=== PATIENT | female | born 1965 | race Caucasian/White ===

== ENCOUNTER 2019-10-10 14:35 | Emergency (ER) | payer MEDICARE ==
[~2019-10-10] VITALS: Ht 154.9 cm; Wt 76.4 kg
[~2019-10-10 14:35] MED LIST: AMITRIPTYLINE H50 M1 PO; ASPIRIN 32325 MG/TAB PO; DESYREL 50MG50 MG PO; FOLIC ACID 11 MG/TA1 PO; IRON TABLETS325 MG PO; KLOR-CON M2020 MEQ PO; LAMICTAL200 MG PO; LORTAB 5/500 501 TAB PO; METHOTREXA50 MG/2 ML SQ; MSIR30 MG PO; NEURONTIN600 MG/TAB PO; NORFLEX 10100 MG/TAB PO; PERCOCET 325 MG1 TAB PO; PHENERGAN 25 TA25 MG PO; PLAQUENIL 200M200 MG PO; PLAVIX 75MG TAB75 MG PO; PREMARIN 1.251.25 MG PO; PRILOSEC 20MG20 MG PO; REMERON 15M15 MG/TA1 PO; SINEQUAN 2525 MG/CAP PO; ULTRAM 50MG TAB50 MG PO; VALIUM 2MG T2 MG/TAB PO; VITAMIN B1100 MCG/ML IM; VITAMIN B11000 MCG/M IM; WELLBUTRIN 100100 MG PO; ZOFRAN 4MG T4 MG/TAB PO; ZOFRAN ODT4 MG PO; ZOLOFT 100MG100 MG PO; ZYPREXA 5MG5 MG PO; [UNRECOGNIZED DRUG - OTHER] PO
[2019-10-10 14:39] VITALS: TEMP 98.9
[2019-10-10 15:22] LABS: BASO % 0.9 % (0.0-2.0); EOS # 0.3 (0.0-0.7); EOS % 7.9 % (0-4.0); GRAN # 2.7 (1.4-6.5); GRAN % 62.6 % (42.2-75.2); HEMATOCRIT 42.1 % (37.0-47.0); HEMOGLOBIN 13.3 g/dl (12.5-16.0); LYMPH # 0.9 (1.2-3.4); LYMPH % 20.7 % (20.0-51.0); MEAN CELL VOLUME 99 fl (80.0-100.0); MEAN CORPUSCULAR HEMOGLOBIN 31 pg (27.0-31.0); MEAN CORPUSCULAR HGB CONC 32 g/dl (33.0-37.0); MEAN PLATELET VOLUME 12.4 fl (7.4-10.4); MONO # 0.3 (0.1-0.6); MONO % 7.7 % (1.7-9.3); PLATELET COUNT 201 K/mm3 (130-400); RED BLOOD COUNT 4.26 M/mm3 (4.10-5.30); REDCELL DISTRIBUTION WIDTH-CV 13.4 % (11.5-14.5)
[2019-10-10 16:01] LABS: ALANINE AMINOTRANSFERASE 10 U/L (9-52); ALBUMIN 4.2 gm/dL (3.5-5.0); ALKALINE PHOSPHATASE 84 U/L (50-136); ANION GAP 10 mmol/L (7-16); AST,SGOT 27 U/L (15-37); BILIRUBIN,TOTAL 0.5 mg/dL (0.0-1.0); BLOOD UREA NITROGEN 13 mg/dL (7-17); CARBON DIOXIDE 25 mmol/L (22-30); CHLORIDE 104 mmol/L (98-107); CREATININE, serum 0.99 (0.52-1.25); GLUCOSE 83 mg/dL (74-106); POTASSIUM 4.2 mmol/L (3.4-5.0); SODIUM 139 mmol/L (137-145); TOTAL PROTEIN 6.8 gm/dL (6.4-8.2)
[2019-10-10 16:04] LABS: C-REACTIVE PROTEIN < 0.5 mg/dL (0.0-0.9)
[2019-10-10 16:10] LABS: TROPONIN-I < 0.012 ng/mL (0.000-0.035)
[2019-10-10 16:15] VITALS: BP 103/59; PULSE 63
== END 2019-10-10 16:25 | disposition home or self-care (01) ==
LOC: COL.ER 14:35
PROVIDERS: Emergency Medicine
DX: S06.0X0A Concussion without loss of consciousness, initial encounter (principal); H11.31 Conjunctival hemorrhage, right eye; M79.7 Fibromyalgia; Q87.19 Other congenital malformation syndromes predominantly associated with short stature; R40.2410 Glasgow coma scale score 13-15, unspecified time; Z87.891 Personal history of nicotine dependence; W19.XXXA Unspecified fall, initial encounter; Y92.009 Unspecified place in unspecified non-institutional (private) residence as the place of occurrence of the external cause
CPT/HCPCS: J7030

== ENCOUNTER 2021-06-29 15:44 | Inpatient (IN) | payer MEDICARE ==
[~2021-06-29] VITALS: Ht 154.9 cm; Wt 160.1 kg
[2021-06-29 18:39] LABS: BASO # 0.1 K/mm3 (0.0-0.2); BASO % 0.7 % (0.0-2.0); GRAN # 7.2 K/mm3 (1.4-6.5); GRAN % 80.4 % (42.2-75.2); HEMATOCRIT 37.6 % (37.0-47.0); HEMOGLOBIN 12.3 g/dl (12.5-16.0); LYMPH % 11.1 % (20.0-51.0); MEAN CELL VOLUME 94 fl (80.0-100.0); MEAN CORPUSCULAR HEMOGLOBIN 31 pg (27.0-31.0); MEAN CORPUSCULAR HGB CONC 33 g/dl (33.0-37.0); MEAN PLATELET VOLUME 12.1 fl (7.4-10.4); MONO # 0.6 K/mm3 (0.1-0.6); MONO % 7.2 % (1.7-9.3); PLATELET COUNT 214 K/mm3 (130-400); RED BLOOD COUNT 3.99 M/mm3 (4.10-5.30); REDCELL DISTRIBUTION WIDTH-CV 13.8 % (11.5-14.5)
[2021-06-29 18:58] LABS: ALBUMIN 2.7 gm/dL (3.5-5.0); BILIRUBIN,TOTAL 0.4 mg/dL (0.2-1.2); C-REACTIVE PROTEIN 0.56 mg/dL (0.00-0.50); CALCIUM 8.5 mg/dL (8.4-10.2); CREATININE, serum 0.92 mg/dL (0.57-1.11); POTASSIUM 3.3 mmol/L (3.5-4.5); TOTAL PROTEIN 5.1 gm/dL (6.2-8.1)
[2021-06-29] MEDS ORDERED: FOLTABS PO (22:25)
[2021-06-29] MEDS ORDERED: FLEXERIL 1010 MG/TAB PO (22:27)
[2021-06-29] MEDS ORDERED: ZOFRAN 4MG T4 MG/TAB PO (22:27)
[2021-06-29] MEDS ORDERED: VITAMIND3 5000 PO (22:27)
[2021-06-29] MEDS ORDERED: REMERON 15M15 MG/TA1 PO (22:28)
[2021-06-29] MEDS ORDERED: MELATONIN5 M1 SL (22:28)
[2021-06-29] MEDS ORDERED: NORCO 325 MG-51 TAB PO (22:28)
[2021-06-29] MEDS ORDERED: MOBIC 7.5MG7.5 MG PO (22:29)
[2021-06-29] MEDS ORDERED: TRIAMCINOLONE A15 G3 TP (22:29)
[2021-06-30] VITALS (14 sets, daily range): BP systolic 92–102; BP diastolic 44–63; PULSE 78–85; TEMP 98–99.3
--- NOTE | 2021-06-30 01:27 | NUR ---
Patient came to the unit, alert and oriented x 4, VSS, complains of general pain, no nausea or vomiting. Not able to swallow pills. Able to drink sips of water. Patient reports feeling weak and havent had food for 5 days. BM 2 hrs ago. NS running at 250 ml/hr.
--- NOTE | 2021-06-30 06:33 | NUR ---
Pt has not been able to rest. She is getting fluids at 150 ml/hr. She removed her IV and a new one started. IV potassium was started but unable to tolerate. Potassium efferv. was tried but patient refused. Right now she is leeping. Shift report will be given to day shift RN.
[2021-06-30 07:15] LABS: CREATININE, serum 0.83 mg/dL (0.57-1.11); POTASSIUM 3.1 mmol/L (3.5-4.5)
[2021-06-30 08:24] LABS: MAGNESIUM 1.5 mg/dL (1.6-2.6); PHOSPHOROUS 2.9 mg/dL (2.3-4.7)
--- NOTE | 2021-06-30 09:43 | NUR ---
structural ironworker met with patient to discuss discharge plan. Patient lives at home alone in [facility]. Patient reports that she is independent and has no difficulties with ADL's. Patient reports that she does not utilize any DME such as a cane or a walker to assist with mobility. Does not have any oxygen needs. PCP is Dr. Larose and she utilizes [facility] for a pharmacy with no no difficulty. Patient reports that she "thinks" she has a DPOA-HC established and that it would be her daughter Kathleen ([phone]). structural ironworker present when speech therapist collaborated with the doctor. Patient reports to the therapist that she hasn't been eatting mainly because she is "to weak" to get up and make the food. PT/OT have been ordered and will await their recommendations for discharge plan. Discharge plan: Patient would like to return home, but is at high risk for supportative needs. Will await PT/OT rec's.
--- NOTE | 2021-06-30 12:29 | NUR ---
Patient refused IV Potassium Chloride stating that it was painful. Patient was advised of her potassium lab result and still refused. Patient has new order for magnesium. Patient was offered magnesium via IV site in hand. The patient advised that she had a consult and would be having a PICC line for future IV medications. She has been taken to get her procedure. Will administer IV medications as ordered via PICC line.
--- NOTE | 2021-06-30 14:32 | NUR ---
Primary nurse was assisted with [phone] patient care by [employer] student Janie Cyr and [employer] instructor Eva Guevara MSN, RN
--- NOTE | 2021-06-30 16:06 | NUR ---
Patient refused IV potassium this morning d/t burning with administration. Patient stated, "If you give me that medication I will jump up out of this bed and leave". This RN asked the patient if she would be willing to have a PICC placed after her EGD and she agreed. Jerrica, attempted placement 3 times and was unsuccessful. Patient is currently having a central line placed by Dr. Lee.
--- NOTE | 2021-06-30 18:54 | NUR ---
Patient has had an eventful day. EGD was comleted. PICC placement was attempted and failed. Patient was then taken for a central line placement by Dr. Lee. Patient now has a centra line in her RIJ. Patient has been tolerating IV medication administration well with the central line. Patient's only complaint is having to be poked so many times and would like to be left alone to sleep tonight. Patient's INT was removed from the left hand.
--- NOTE | 2021-06-30 23:42 | NUR ---
ALERT AND OX4 PT HAD A EVENTFUL DAY. RT IJ PLACED, FLUSHED. FLUIDS RUNNING, MAG AND POTASSIUM PER ORDER. PT TOLERATED SOME CLEAR LIQUIDS. SCARED TO CONSUME TO MUCH WANTS TO HOLD ON PM MEDS OTHER THAN IVS. POC DISCUSSED. CALL LIGHT WI REACH . NEEDS MET.
[2021-07-01 02:56] VITALS: BP 90/42; PULSE 79; TEMP 98
--- NOTE | 2021-07-01 04:17 | NUR ---
PT REPORT PAIN, HEAD AND RIGHT SIDE OF NECK. PT IS HESITANT TO TAKE PILLS STILL UNDERSTANDABLY. CALLED [facility] TO SEE IF WE CAN CHANGE IT TO LIQUID PAIN MED. WILL CHANGE.
[2021-07-01 04:34] VITALS: BP 97/56
--- NOTE | 2021-07-01 05:30 | NUR ---
PT RESTING NOW AFTER LIQ NORCO. FLUIDS RUNNING AT 150ML/HR. CONT TO TOLERATE SOME FLUIDS WITHOUT NAUSEA OR DIFFICULTY. STATES HER NECK WHERE THEY PLACED THE INTERNAL JUGULAR IS WAKING UP AND CONTRIBUTES SOME PAIN FROM THIS PLUS BODY ACHES. NEEDS ARE MET.
[2021-07-01 08:08] VITALS: BP 90/46; PULSE 76; TEMP 98.3
[2021-07-01 09:19] LABS: BASO % 0.5 % (0.0-2.0); GRAN # 4.2 K/mm3 (1.4-6.5); GRAN % 75.4 % (42.2-75.2); LYMPH # 0.9 K/mm3 (1.2-3.4); LYMPH % 16.9 % (20.0-51.0); MEAN CELL VOLUME 93 fl (80.0-100.0); MEAN CORPUSCULAR HGB CONC 33 g/dl (33.0-37.0); MEAN PLATELET VOLUME 12.4 fl (7.4-10.4); MONO # 0.4 K/mm3 (0.1-0.6); MONO % 6.5 % (1.7-9.3); PLATELET COUNT 166 K/mm3 (130-400); RED BLOOD COUNT 3.07 M/mm3 (4.10-5.30); REDCELL DISTRIBUTION WIDTH-CV 14.3 % (11.5-14.5)
[2021-07-01 09:28] LABS: HEMOGLOBIN 9.3 g/dl (12.5-16.0); MEAN CORPUSCULAR HEMOGLOBIN 30 pg (27.0-31.0)
[2021-07-01 09:29] LABS: HEMATOCRIT 28.6 % (37.0-47.0)
[2021-07-01 10:22] LABS: CALCIUM 7.3 mg/dL (8.4-10.2); CREATININE, serum 0.65 mg/dL (0.57-1.11); POTASSIUM 3.7 mmol/L (3.5-4.5)
[2021-07-01 12:45] VITALS: BP 88/45; PULSE 73; TEMP 98.3
--- NOTE | 2021-07-01 13:09 | NUR ---
Patient took approx. 10mL of the liquid centrum before gagging and nearly vomiting. Patient is refusing to take the med again.
[2021-07-01 16:20] VITALS: BP 99/50; PULSE 82; TEMP 97.9
[2021-07-01 20:10] VITALS: BP 87/45; PULSE 81; TEMP 99.1
--- NOTE | 2021-07-01 22:54 | NUR ---
ALERT AND OX4. DENIES SOA, CHEST PAIN OR DIZZY. TRYED MASH POTATO TONIGHT AND TOLERATED WELL. DENIES PAIN. PM MEDS GIVEN. REF PILLS. IV FLUIDS GOING PER ORDER. POC DISCUSSED. NEEDS MET.
[2021-07-02] VITALS (7 sets, daily range): BP systolic 97–115; BP diastolic 47–69; PULSE 77–82; TEMP 98–99
--- NOTE | 2021-07-02 05:41 | NUR ---
RESTED THROUGH THE NIGHT WIHTOUT INCIDENT. AM LABS DRAWN. NEEDS MET.
[2021-07-02 06:37] LABS: BASO % 0.4 % (0.0-2.0); GRAN % 67.6 % (42.2-75.2); LYMPH % 22.8 % (20.0-51.0); MEAN CELL VOLUME 95 fl (80.0-100.0); MEAN CORPUSCULAR HGB CONC 32 g/dl (33.0-37.0); MEAN PLATELET VOLUME 12.3 fl (7.4-10.4); MONO # 0.4 K/mm3 (0.1-0.6); MONO % 8.3 % (1.7-9.3); PLATELET COUNT 151 K/mm3 (130-400); RED BLOOD COUNT 3.07 M/mm3 (4.10-5.30); REDCELL DISTRIBUTION WIDTH-CV 14.4 % (11.5-14.5)
[2021-07-02 06:42] LABS: HEMATOCRIT 29.2 % (37.0-47.0); HEMOGLOBIN 9.3 g/dl (12.5-16.0); MEAN CORPUSCULAR HEMOGLOBIN 30 pg (27.0-31.0)
[2021-07-02 06:56] LABS: CALCIUM 7.8 mg/dL (8.4-10.2); CREATININE, serum 0.6 mg/dL (0.57-1.11); MAGNESIUM 1.7 mg/dL (1.6-2.6); POTASSIUM 3.5 mmol/L (3.5-4.5)
--- NOTE | 2021-07-02 20:00 | NUR ---
Bedside shift report received, assumed care for operations supervisor 2nd shift. Assessment complete. A&Ox4. Denies nausea/shortness of breath. VS stable. States she is having general body aches but states she doesnt want any pain medication at this time. Encouraged to call if pain level increases and intervention is needed. Central line to right IJ with NS@60ml/hr-infusing without difficulty. Plan of care discussed for this shift to include meds/calling for questions/concerns. Verbalizes understanding/denies needs. Did refuse all PO medications at HS except IV/Liquid form. Call light in reach. Will monitor.
--- NOTE | 2021-07-03 00:30 | NUR ---
Called with c/o pain-states "my whole body just hurts." Rating pain 8/10 on pain scale. Moni given per dr lynne. Will monitor.
[2021-07-03 04:11] VITALS: BP 98/46; PULSE 80; TEMP 98.4
[2021-07-03 06:45] LABS: CALCIUM 7.6 mg/dL (8.4-10.2); CREATININE, serum 0.63 mg/dL (0.57-1.11); MAGNESIUM 1.5 mg/dL (1.6-2.6); POTASSIUM 3.5 mmol/L (3.5-4.5)
--- NOTE | 2021-07-03 08:06 | NUR ---
Pt sleeping upon entry to room, no C/O pain at this time. Shift assessment complete, left Pt call light in reach, bed in lowest position.
[2021-07-03 09:06] VITALS: BP 105/47; PULSE 75; TEMP 98
--- NOTE | 2021-07-03 10:19 | NUR ---
PT/OT are recommending home. SW met with the patient to follow up and review the benefits of home health. The patient reports that she is doing well. She reports that she feels good going back home and is not interested in home health at this time. She states that she is interested in housekeeping though. JANET provided the patient a list of agencies in the [facility] that provide house cleaning. The patient had no other concerns for SW at this time. *Discharge plan: home*
[2021-07-03 11:42] VITALS: BP 106/54; PULSE 78; TEMP 98
[2021-07-03 12:02] LABS: BASO % 0.9 % (0.0-2.0); GRAN # 3.2 K/mm3 (1.4-6.5); GRAN % 72.3 % (42.2-75.2); LYMPH # 0.8 K/mm3 (1.2-3.4); LYMPH % 18.8 % (20.0-51.0); MEAN CELL VOLUME 93 fl (80.0-100.0); MEAN CORPUSCULAR HGB CONC 33 g/dl (33.0-37.0); MEAN PLATELET VOLUME 11.7 fl (7.4-10.4); MONO # 0.3 K/mm3 (0.1-0.6); MONO % 7.1 % (1.7-9.3); PLATELET COUNT 158 K/mm3 (130-400); RED BLOOD COUNT 3.15 M/mm3 (4.10-5.30); REDCELL DISTRIBUTION WIDTH-CV 14.3 % (11.5-14.5)
[2021-07-03 12:05] LABS: HEMATOCRIT 29.4 % (37.0-47.0); HEMOGLOBIN 9.7 g/dl (12.5-16.0); MEAN CORPUSCULAR HEMOGLOBIN 31 pg (27.0-31.0)
[2021-07-03 16:07] VITALS: BP 94/49; PULSE 88; TEMP 98.2
[2021-07-03 19:38] VITALS: BP 117/65; PULSE 94; TEMP 97.8
--- NOTE | 2021-07-03 22:27 | NUR ---
ALERT AND OX4. DENIES SOA, CHEST PAIN OR DIZZY. PM MEDS GIVEN ONLY WANTS IV STUFF. WAS ABLE TO CONSUME MASHPOTATO TONIGHT. POC DISCUSSED. CALL LIGHT WI REACH. RT IJ FLUSHED. FLUIDS RUNNINGS. NEEDS MET.
[2021-07-04 00:26] VITALS: BP 99/54; PULSE 82; TEMP 98.2
[2021-07-04 03:54] VITALS: BP 105/57; PULSE 78; TEMP 98.3
--- NOTE | 2021-07-04 05:22 | NUR ---
Rested through the night without incident. Need are met. AM labs drawn.
[2021-07-04 06:45] LABS: BASO % 0.8 % (0.0-2.0); GRAN # 2.4 K/mm3 (1.4-6.5); LYMPH # 0.9 K/mm3 (1.2-3.4); LYMPH % 22.7 % (20.0-51.0); MEAN CELL VOLUME 91 fl (80.0-100.0); MEAN CORPUSCULAR HGB CONC 34 g/dl (33.0-37.0); MEAN PLATELET VOLUME 12.2 fl (7.4-10.4); MONO # 0.4 K/mm3 (0.1-0.6); MONO % 10.2 % (1.7-9.3); PLATELET COUNT 165 K/mm3 (130-400); RED BLOOD COUNT 3.07 M/mm3 (4.10-5.30); REDCELL DISTRIBUTION WIDTH-CV 14.1 % (11.5-14.5)
[2021-07-04 06:46] LABS: HEMOGLOBIN 9.5 g/dl (12.5-16.0); MEAN CORPUSCULAR HEMOGLOBIN 31 pg (27.0-31.0)
[2021-07-04 07:17] LABS: CALCIUM 7.4 mg/dL (8.4-10.2); CREATININE, serum 0.6 mg/dL (0.57-1.11); MAGNESIUM 1.5 mg/dL (1.6-2.6); POTASSIUM 3.4 mmol/L (3.5-4.5)
[2021-07-04 07:49] VITALS: BP 114/58; PULSE 79; TEMP 98.5
--- NOTE | 2021-07-04 11:30 | NUR ---
PT RESTING IN BED. REFUSES ALL ORAL MEDICATIONS. POTASSIUM REPLCEMENT VIA CENTRAL LINE RUNNING AT THIS TIME. DENIES ANY PAIN OR NEEDS AT THIS TIME. WILL CONTINUE TO MONITOR.
[2021-07-04 11:43] VITALS: BP 90/74; PULSE 80; TEMP 98
--- NOTE | 2021-07-04 12:25 | NUR ---
PT BLOOD SUGAR AT 63 AT THIS TIME. PT HAS ORDERED LUNCH AND IS AGREEABLE TO EATING APPLESAUCE AND DRINKING ORANGE JUICE. WILL CONTINUE TO MONITOR.
--- NOTE | 2021-07-04 15:04 | NUR ---
PT DOWN FOR A PROCEDURE AT THIS TIME.
[2021-07-04 17:57] LABS: ZINC,S 0.48 mcg/mL (())
[2021-07-04 19:12] VITALS: BP 94/49; PULSE 83; TEMP 98.2
--- NOTE | 2021-07-04 22:40 | NUR ---
Patient assessed around 1950. Did not want to eat supper, and did not want to take any oral medications. Is drinking fluids. Aware that she will be NPO after midnight for her EGD tomorrow around noon. Voices no questions, needs, or concerns at this time. In bed with call light within reach.
[2021-07-04 23:45] VITALS: BP 104/58; PULSE 90; TEMP 98
[2021-07-05] VITALS (12 sets, daily range): BP systolic 84–152; BP diastolic 43–96; PULSE 67–87; TEMP 97.4–98.3
--- NOTE | 2021-07-05 00:26 | NUR ---
Patient given PRN Gary as requested for pain at this time.
--- NOTE | 2021-07-05 06:05 | NUR ---
Patient given PRN [place] once this shift for pain as requested. Voices no further questions, needs, or concerns at this time. Patient has been NPO since midnight for EGD with dilation today. In bed with call light within reach. IV fluids continue per orders.
[2021-07-05 07:01] LABS: ANION GAP 9 mmol/L (7-16); BLOOD UREA NITROGEN < 2 mg/dL (10-20); CALCIUM 7.7 mg/dL (8.4-10.2); CARBON DIOXIDE 23 mmol/L (22-29); CHLORIDE 106 mmol/L (98-107); GLUCOSE 73 mg/dL (70-99); MAGNESIUM 1.7 mg/dL (1.6-2.6); POTASSIUM 3.8 mmol/L (3.5-4.5); SODIUM 138 mmol/L (136-145)
--- NOTE | 2021-07-05 07:28 | NUR ---
RECEIVED REPORT FROM ANDRE PULIDO. PT ASLEEP IN BED. BREATHING REG/UNLABORED. CALL BRIAN IN REACH
[2021-07-05 08:49] LABS: BASO % 0.5 % (0.0-2.0); GRAN # 2.5 K/mm3 (1.4-6.5); GRAN % 66.8 % (42.2-75.2); LYMPH # 0.8 K/mm3 (1.2-3.4); LYMPH % 21.2 % (20.0-51.0); MEAN CELL VOLUME 93 fl (80.0-100.0); MEAN CORPUSCULAR HGB CONC 33 g/dl (33.0-37.0); MEAN PLATELET VOLUME 12.3 fl (7.4-10.4); MONO # 0.4 K/mm3 (0.1-0.6); MONO % 10.1 % (1.7-9.3); PLATELET COUNT 168 K/mm3 (130-400); RED BLOOD COUNT 3.12 M/mm3 (4.10-5.30); REDCELL DISTRIBUTION WIDTH-CV 14.6 % (11.5-14.5)
[2021-07-05 08:51] LABS: HEMATOCRIT 29.1 % (37.0-47.0); HEMOGLOBIN 9.6 g/dl (12.5-16.0); MEAN CORPUSCULAR HEMOGLOBIN 31 pg (27.0-31.0)
--- NOTE | 2021-07-05 12:54 | NUR ---
PT BACK FROM UPPER GI. VITALS STABLE. PT DOING WELL. RESTING IN BED
[2021-07-05] MEDS ORDERED: PROTONIX 40MG T40 MG PO (13:58)
[2021-07-05] MEDS ORDERED: Zinc Sulfate PO (14:00)
[2021-07-05] MEDS ORDERED: B-121000 MCG PO (14:00)
[2021-07-05] MEDS ORDERED: MAG-OX 400400 MG/TAB PO (15:12)
[2021-07-05] MEDS ORDERED: ZINC SULFATE 1566 MG PO (15:14)
--- NOTE | 2021-07-05 18:48 | NUR ---
PT HAD UPPER GI TODAY WITH ESOPHAGEAL DILATION. PLAN WAS FOR PT TO DISCHARGE, BUT PT PRESENTED WITH LOW BP PRIOR TO D/C. HOSPITALIST DECIDED TO KEEP PT OVERNIGHT AND THE NEW PLAN IS TO D/C IN THE MORNING. PT RESTING IN BED. NO NEEDS AT THIS TIME. DENIES PAIN
--- NOTE | 2021-07-05 19:40 | NUR ---
Report received, assumed care for shift production associate. Assessment complete. A&Ox4. Denies nausea/shortness of breath. Rating pain 6/10 on pain scale to bilat lower extremity-described as constant ache. States she wants to wait to take pain meds until later. Upset about discharge confusion. States three different people stated she would be going home tonight. No discharge order in computer at this time. This nurse received in report that discharge was cancelled due to hypotension. Patient states its to late to go home now as there is no one to come and get her. States her daughter will be here at 10am to get her. Discharge paperwork is completed but there has been no DC order placed. States she is okay staying so her family doesnt have to come out this late. Denies any other questions/concerns. Call light in reach. Will monitor.
--- NOTE | 2021-07-05 20:15 | NUR ---
IV fluids DCd at this time per dr order.
--- NOTE | 2021-07-05 22:15 | NUR ---
Called with c/o pain to bilat legs-rating pain 8/10 on pain scale-described as constant throbbing and ache. Hydrocodone given per dr order. Will monitor.
[2021-07-06 00:47] VITALS: BP 91/57; PULSE 81; TEMP 98.5
[2021-07-06 04:31] VITALS: BP 103/60; PULSE 81; TEMP 98.3
--- NOTE | 2021-07-06 04:40 | NUR ---
Rested well this shift. Received norco x1 for bilat lower ext pain with good results. States she just wants to go home this morning and that her daughter will be here at 1000 to pick her up. VS remain stable. Blood sugars remained above 75. AM labs drawn off of right IJ triple lumen without difficulty. Denies current needs. Call light in reach. Will monitor.
[2021-07-06 06:56] LABS: BASO % 0.8 % (0.0-2.0); GRAN # 2.3 K/mm3 (1.4-6.5); GRAN % 62.3 % (42.2-75.2); LYMPH # 0.9 K/mm3 (1.2-3.4); LYMPH % 25.3 % (20.0-51.0); MEAN CELL VOLUME 94 fl (80.0-100.0); MEAN CORPUSCULAR HGB CONC 32 g/dl (33.0-37.0); MEAN PLATELET VOLUME 12.1 fl (7.4-10.4); MONO # 0.4 K/mm3 (0.1-0.6); MONO % 10.5 % (1.7-9.3); PLATELET COUNT 181 K/mm3 (130-400); RED BLOOD COUNT 3.17 M/mm3 (4.10-5.30); REDCELL DISTRIBUTION WIDTH-CV 14.6 % (11.5-14.5)
[2021-07-06 06:59] LABS: HEMATOCRIT 29.7 % (37.0-47.0); HEMOGLOBIN 9.6 g/dl (12.5-16.0); MEAN CORPUSCULAR HEMOGLOBIN 30 pg (27.0-31.0)
--- NOTE | 2021-07-06 07:02 | NUR ---
REPORT RECEIVED FROM ANDRE LARSON. PT ASLEEP IN BED. BREATHING REG/UNLABORED. CALL BRIAN IN REACH
[2021-07-06 07:12] LABS: ANION GAP 9 mmol/L (7-16); CALCIUM 8.1 mg/dL (8.4-10.2); CARBON DIOXIDE 23 mmol/L (22-29); CHLORIDE 107 mmol/L (98-107); CREATININE, serum 0.62 mg/dL (0.57-1.11); GLUCOSE 67 mg/dL (70-99); POTASSIUM 3.2 mmol/L (3.5-4.5); SODIUM 139 mmol/L (136-145)
[2021-07-06 07:13] LABS: BLOOD UREA NITROGEN < 2 mg/dL (10-20)
[2021-07-06 07:56] VITALS: BP 102/48; PULSE 78; TEMP 98.5
[2021-07-06 08:20] LABS: VITAMIN B1 49 nmol/L (70-180)
--- NOTE | 2021-07-06 09:49 | NUR ---
The patient is to discharge back home today, 07/06. SW met with the patient and presented and read the IM form outloud to her. The patient verbalized understanding and signed the form. SW provided her with a copy. The patient states that her daughter will be transporting her home. No additional needs at this time.
--- NOTE | 2021-07-06 10:47 | NUR ---
DISCHARGE INSTRUCTIONS REVIEWED WITH PT. QUESTIONS INVITED AND ANSWERED. TELE AND CENTRAL LINE REMOVED. PT ESCORTED OUT TO CAR BY [employer] EM[employer]
== END 2021-07-06 11:15 | disposition home or self-care (01) | DRG 391 ==
LOC: COL.ER 15:44 → MEDICAL 22:23
PROVIDERS: Internal Medicine; Internal Medicine Gastroenterology; Nurse Practitioner; Nurse Practitioner Family; Physician Assistant; Surgery; ADMIT Internal Medicine
PROC: 0DB38ZX Excision of Lower Esophagus, Via Natural or Artificial Opening Endoscopic, Diagnostic (ICD-10-PCS; 2021-06-30)
PROC: 05HM33Z Insertion of Infusion Device into Right Internal Jugular Vein, Percutaneous Approach (ICD-10-PCS; principal; 2021-06-30 12:00)
DX: K22.2 Esophageal obstruction (principal); E43 Unspecified severe protein-calorie malnutrition; E87.1 Hypo-osmolality and hyponatremia; M35.00 Sjogren syndrome, unspecified; M06.9 Rheumatoid arthritis, unspecified; M79.7 Fibromyalgia; M32.9 Systemic lupus erythematosus, unspecified; I45.10 Unspecified right bundle-branch block; E86.0 Dehydration; K52.9 Noninfective gastroenteritis and colitis, unspecified; E86.9 Volume depletion, unspecified; E87.6 Hypokalemia; D64.9 Anemia, unspecified; Z66 Do not resuscitate; R13.10 Dysphagia, unspecified; K29.70 Gastritis, unspecified, without bleeding; E83.42 Hypomagnesemia; E16.2 Hypoglycemia, unspecified; E53.8 Deficiency of other specified B group vitamins; Z68.28 Body mass index [BMI] 28.0-28.9, adult; Z87.891 Personal history of nicotine dependence
CPT/HCPCS: 99223-AI; 99232-AI; 99233-AI; 99239; A9585; C1726; C1751; C1892; C9113; J0696; J1650; J2060; J2704; J3010; J3420; J3475; J3480; J7030; J7040; Q9967

== ENCOUNTER 2021-08-04 14:29 | Inpatient (IN) | payer MEDICARE ==
[~2021-08-04] VITALS: Ht 154.9 cm; Wt 65.9 kg
[~2021-08-04 14:29] MED LIST changes: +B-121000 MCG PO; +FLEXERIL 1010 MG/TAB PO; +FOLTABS PO; +MAG-OX 400400 MG/TAB PO; +MELATONIN5 M1 SL; +MOBIC 7.5MG7.5 MG PO; +NORCO 325 MG-51 TAB PO; +PROTONIX 40MG T40 MG PO; +TRIAMCINOLONE A15 G3 TP; +VITAMIND3 5000 PO; +ZINC SULFATE 1566 MG PO; +Zinc Sulfate PO
[2021-08-04 18:00] LABS: BASO % 0.5 % (0.0-2.0); EOS # 0.1 K/mm3 (0.0-0.7); EOS % 0.8 % (0-4.0); GRAN # 4.6 K/mm3 (1.4-6.5); GRAN % 75.3 % (42.2-75.2); HEMATOCRIT 38.6 % (37.0-47.0); HEMOGLOBIN 12.8 g/dl (12.5-16.0); LYMPH % 16.5 % (20.0-51.0); MEAN CELL VOLUME 91 fl (80.0-100.0); MEAN CORPUSCULAR HEMOGLOBIN 30 pg (27.0-31.0); MEAN CORPUSCULAR HGB CONC 33 g/dl (33.0-37.0); MEAN PLATELET VOLUME 12.7 fl (7.4-10.4); MONO # 0.4 K/mm3 (0.1-0.6); MONO % 6.4 % (1.7-9.3); PLATELET COUNT 208 K/mm3 (130-400); RED BLOOD COUNT 4.23 M/mm3 (4.10-5.30); REDCELL DISTRIBUTION WIDTH-CV 13.9 % (11.5-14.5)
[2021-08-04 18:11] LABS: ALBUMIN 3.5 gm/dL (3.5-5.0); BILIRUBIN,TOTAL 0.6 mg/dL (0.2-1.2); CALCIUM 9.7 mg/dL (8.4-10.2); CREATININE, serum 0.76 mg/dL (0.57-1.11); TOTAL PROTEIN 6.7 gm/dL (6.2-8.1)
[2021-08-04 18:13] LABS: POTASSIUM 2.8 mmol/L (3.5-4.5)
--- NOTE | 2021-08-04 22:46 | NUR ---
Arrived to room 319 via wheelchair from ED. Oriented to room and policy.
[2021-08-04 22:50] VITALS: BP 123/58; PULSE 86; TEMP 99
--- NOTE | 2021-08-05 00:30 | NUR ---
Resting eyes closed. No s/s of pain or discomfort noted.
--- NOTE | 2021-08-05 00:30 | NUR ---
C/O pain to entire body-described as constant ache-rating pain 8/10 on pain scale. Morphine given per dr order. ALso c/o nausea. Phenergan given per dr order. Will monitor.
[2021-08-05 05:10] VITALS: BP 112/58; PULSE 80; TEMP 98
[2021-08-05 06:25] LABS: BASO % 0.5 % (0.0-2.0); EOS # 0.1 K/mm3 (0.0-0.7); EOS % 2.5 % (0-4.0); GRAN # 3.6 K/mm3 (1.4-6.5); GRAN % 64.5 % (42.2-75.2); HEMOGLOBIN 11.1 g/dl (12.5-16.0); LYMPH # 1.4 K/mm3 (1.2-3.4); LYMPH % 24.6 % (20.0-51.0); MEAN CELL VOLUME 94 fl (80.0-100.0); MEAN CORPUSCULAR HEMOGLOBIN 31 pg (27.0-31.0); MEAN CORPUSCULAR HGB CONC 33 g/dl (33.0-37.0); MEAN PLATELET VOLUME 13.7 fl (7.4-10.4); MONO # 0.4 K/mm3 (0.1-0.6); MONO % 7.2 % (1.7-9.3); RED BLOOD COUNT 3.61 M/mm3 (4.10-5.30); REDCELL DISTRIBUTION WIDTH-CV 14.1 % (11.5-14.5)
--- NOTE | 2021-08-05 06:27 | NUR ---
Rested well after receiving one dose of morphine/phenergan. VS remained stable. Denies current needs. Call light in reach. Will monitor.
[2021-08-05 06:38] LABS: CALCIUM 7.9 mg/dL (8.4-10.2); CREATININE, serum 0.66 mg/dL (0.57-1.11); POTASSIUM 3.9 mmol/L (3.5-4.5)
[2021-08-05 06:48] LABS: PLATELET COUNT 93 K/mm3 (130-400)
[2021-08-05 08:33] VITALS: BP 100/53; PULSE 80; TEMP 97.6
--- NOTE | 2021-08-05 11:05 | NUR ---
PT SITTING UP IN BED, DENIES PAIN AT THIS TIME. VSS, PT IS A/O X3. DR RIDDLE PLANNING ON Saturday.
[2021-08-05 12:45] VITALS: BP 101/49; PULSE 78; TEMP 98.2
--- NOTE | 2021-08-05 13:02 | NUR ---
stopped by but nothing needed at this time.
--- NOTE | 2021-08-05 14:36 | NUR ---
Plan is to return home to her apartment independently. SW met with patient about DC plan, tube feeding, and DPOA PPW. Patient reports that her PCP is Dr. Soledad Osei. Patient reports that she uses [facility] for medications and has a sit to stand walker, and cane for mobility. Patient shares that 80 percent of the time she does not need mobility support. Patient reports that she is able to drive and support herself. Patient reports that she has had a feeding tube in the past and can use the push feed but would like to have a pump with night feedings. Patient reports that she is working with the [employer] to support getting her medicaid put through so that she can have more medical supports. Patient indicated that she has a DTR who is her POA for medical and financial Sonja Hernandez and her son in law Saturnino Patrick . Curry is okay with home health support for feeding for he first week. WIll suppor client in obtaining a nutritions support company. Informed client on support with case managment. CLient denies the use of any oxygen or heart related devices. WIll follow.
[2021-08-05 16:50] VITALS: BP 105/58; PULSE 78; TEMP 98.2
--- NOTE | 2021-08-05 18:17 | NUR ---
PT UP TO BR WITH SBA. VOIDED AND RETURNED TO BED.
[2021-08-05 20:00] VITALS: BP 127/69; PULSE 82; TEMP 97.8
[2021-08-06 00:12] VITALS: BP 101/47; PULSE 79; TEMP 99.1
[2021-08-06 04:25] VITALS: BP 105/53; PULSE 83; TEMP 98.4
--- NOTE | 2021-08-06 05:44 | NUR ---
PT HAD UNEVENTFUL NIGHT THIS SHIFT. PT REMAINS ON A MECH. SOFT AND PT STATES SHE IS UNABLE TO TOLERATE ANYTHING PO. ZOFRAN ADMINISTERED ORDERED. PAIN MEDICATION ADMINISTERED ORDERED. N/S CONTINUES TO INFUSE AT 75CC/HR TO RFA IV. POC DISCUSSED WITH PT. PT VERBALIZES UNDERSTANDING. THIS NURSE WILL ENSURE TO RELAY TO ONCOMING CHARGE THE CONCERNS PT VERBALIZED FROM YESTERDAYS DAY STAFF. ALL NEEDS MET THIS NIGHT. CALL LIGHT WITHIN REACH.
[2021-08-06 06:36] LABS: MEAN CELL VOLUME 94 fl (80.0-100.0); MEAN CORPUSCULAR HGB CONC 32 g/dl (33.0-37.0); MEAN PLATELET VOLUME 12.2 fl (7.4-10.4); PLATELET COUNT 155 K/mm3 (130-400); RED BLOOD COUNT 3.19 M/mm3 (4.10-5.30); REDCELL DISTRIBUTION WIDTH-CV 14.2 % (11.5-14.5)
[2021-08-06 07:04] LABS: CALCIUM 7.6 mg/dL (8.4-10.2); CREATININE, serum 0.63 mg/dL (0.57-1.11); MAGNESIUM 1.6 mg/dL (1.6-2.6); POTASSIUM 3.3 mmol/L (3.5-4.5)
--- NOTE | 2021-08-06 07:47 | NUR ---
PT REFUSING ALL PO INTAKE AT THIS TIME.
[2021-08-06 07:53] LABS: HEMATOCRIT 29.9 % (37.0-47.0); HEMOGLOBIN 9.7 g/dl (12.5-16.0); MEAN CORPUSCULAR HEMOGLOBIN 30 pg (27.0-31.0)
[2021-08-06 08:35] VITALS: BP 106/55; PULSE 78; TEMP 98.5
--- NOTE | 2021-08-06 09:35 | NUR ---
PT REFUSING ALL PO INTAKE AT THIS TIME. PT UNWILLING TO TRY PO. IV FLUIDS ORDERED TO PICC LINE TO RUE.
[2021-08-06 12:49] VITALS: BP 109/57; PULSE 76; TEMP 98.1
--- NOTE | 2021-08-06 14:48 | NUR ---
IN TO SEE PT THIS PM.
[2021-08-06 16:46] VITALS: BP 130/61; PULSE 97; TEMP 97.8
[2021-08-06 22:01] VITALS: BP 109/58; PULSE 62; TEMP 98.2
[2021-08-07] VITALS (11 sets, daily range): BP systolic 103–152; BP diastolic 48–77; PULSE 72–97; TEMP 97.9–98.3
--- NOTE | 2021-08-07 04:45 | NUR ---
Patient resting comfortably, no c/o at this time, medicated for pain as requested, telemetry in use, call joseph w/i reach, assisted to bathroom, EGD scheduled for today, updated on plan of care, NPO since MN,
--- NOTE | 2021-08-07 06:54 | NUR ---
dozing and awakens easily, bedside shift report received from ANDRE Katz
[2021-08-07 07:41] LABS: HEMOGLOBIN 10.1 g/dl (12.5-16.0); MEAN CELL VOLUME 93 fl (80.0-100.0); MEAN CORPUSCULAR HEMOGLOBIN 30 pg (27.0-31.0); MEAN CORPUSCULAR HGB CONC 32 g/dl (33.0-37.0); MEAN PLATELET VOLUME 12.5 fl (7.4-10.4); PLATELET COUNT 160 K/mm3 (130-400); RED BLOOD COUNT 3.35 M/mm3 (4.10-5.30); REDCELL DISTRIBUTION WIDTH-CV 14.1 % (11.5-14.5)
[2021-08-07 07:55] LABS: HEMATOCRIT 31.2 % (37.0-47.0)
[2021-08-07 08:19] LABS: CALCIUM 7.8 mg/dL (8.4-10.2); CREATININE, serum 0.64 mg/dL (0.57-1.11); MAGNESIUM 1.5 mg/dL (1.6-2.6); POTASSIUM 3.5 mmol/L (3.5-4.5)
--- NOTE | 2021-08-07 09:04 | NUR ---
resting in bed, full assessment completed, see interventions for further info
--- NOTE | 2021-08-07 09:30 | NUR ---
c/o burning to IV site, checked and it does not appear infiltrated, potassium rate slowed to 75ml/hr and NS rate slowed to 50ml/hr
--- NOTE | 2021-08-07 11:45 | NUR ---
continues to c/o potassium burning but declines paulineiang another IV started, family at bedside
--- NOTE | 2021-08-07 12:04 | NUR ---
Initial visit; Patient thanked [employer] for looking in on her and keeping her in [employer]'s prayers.
--- NOTE | 2021-08-07 12:30 | NUR ---
c/o generalized pain/discomfort, medicated with morphine 2mg slow IV
--- NOTE | 2021-08-07 13:03 | NUR ---
bedside shift report given to ANDRE Breaux, patient is now sleeping
--- NOTE | 2021-08-07 16:56 | NUR ---
Pt has rested quietly since returning from EGD at 1430 via bed. Daughter at bedside most of afternoon, pt rested. Called [facility] regarding diet status and she changed the order to clear liquids, and to encourage PO clear liquid intake. Pt refusing anything and also continues to refuse pills PO. IVF infusing, will give report to nightshift nurse who will resume care.
--- NOTE | 2021-08-07 20:06 | NUR ---
Called to room by patient, upon entering patient is yelling "it garcia" referring to IV, stopped fluids and attempted to remove antwan wrap from IV site, patient is yelling and hitting at this nurse- this nurse stopped unwrapping IV and addressed behavior setting boundaries that it is not appropriate to yell and hit and be rude, patient requested new nurse and this nurse agreed - offered to look at IV at this time x2 and patient refused. This nurse reported to charge nurse, report given and care transferred.
--- NOTE | 2021-08-07 20:20 | NUR ---
ASSESSMENT COMPLETE. PT RESTING IN BED WATCHING TV. PT REFUSES ALL MEDS EXCEPT MORPHINE AND ZOFRAN, WHICH SHE WANTS TO TAKE AROUND 2300HRS. PT STATES SHE HAS PAIN ALL OVER, WHICH SHE RATES AT A 6 TO 7, BUT STILL WANTS TO WAIT UNTIL ABOUT 2300HRS FOR PAIN RELIEF. PT DENIES PALPITATIONS, SOB OR DIZZINESS. PT STATES SHE HAS NO OTHER NEEDS AT THIS TIME. CALL LIGHT WITHIN REACH.
[2021-08-08 00:46] VITALS: BP 108/50; PULSE 84; TEMP 98.8
[2021-08-08 03:45] VITALS: BP 128/62; PULSE 97; TEMP 98.1
--- NOTE | 2021-08-08 06:24 | NUR ---
PT RESTING IN BED GOING IN AND OUT OF SLEEP. PT HAD A FAIRLY UNEVENTFUL NIGHT. PT COMPLAINS OF GENERALIZED PAIN, BUT DOESN'T WANT PAIN MEDICATIONS UNTIL AROUND 0700HRS. PT DENIES PALPITATIONS, SOB OR DIZZINESS. PT STATES SHE HAS NO OTHER NEEDS AT THIS TIME. CALL LIGHT WITHIN REACH.
[2021-08-08 06:40] LABS: CALCIUM 7.7 mg/dL (8.4-10.2); CREATININE, serum 0.6 mg/dL (0.57-1.11); POTASSIUM 3.8 mmol/L (3.5-4.5)
[2021-08-08 07:46] LABS: BASO % 0.3 % (0.0-2.0); EOS # 0.2 K/mm3 (0.0-0.7); EOS % 2.7 % (0-4.0); GRAN # 4.5 K/mm3 (1.4-6.5); GRAN % 75.1 % (42.2-75.2); LYMPH # 0.8 K/mm3 (1.2-3.4); LYMPH % 12.7 % (20.0-51.0); MEAN CELL VOLUME 91 fl (80.0-100.0); MEAN CORPUSCULAR HGB CONC 33 g/dl (33.0-37.0); MEAN PLATELET VOLUME 12.6 fl (7.4-10.4); MONO # 0.5 K/mm3 (0.1-0.6); MONO % 8.4 % (1.7-9.3); PLATELET COUNT 143 K/mm3 (130-400); RED BLOOD COUNT 3.23 M/mm3 (4.10-5.30); REDCELL DISTRIBUTION WIDTH-CV 14.2 % (11.5-14.5)
[2021-08-08 07:49] LABS: HEMATOCRIT 29.4 % (37.0-47.0); HEMOGLOBIN 9.6 g/dl (12.5-16.0); MEAN CORPUSCULAR HEMOGLOBIN 30 pg (27.0-31.0)
[2021-08-08 08:08] VITALS: BP 120/59; PULSE 79; TEMP 99
[2021-08-08 11:12] VITALS: BP 122/60; PULSE 81; TEMP 98.5
--- NOTE | 2021-08-08 12:52 | NUR ---
cloth printing utility worker spoke with the patient post rounding with the hospitalist team. Patient is not working will therapy and the physician spoke with her encouraging her to participate. Hospitalist is going to place a ST consult in to see if the patient will need a Peg placement post dialation. I spoke with the patient about the need for SNF post discharge due to the patient's weakness. Patient is accepting of this and has agreed to me sending a referral to [facility]. Spoke with Noe who states that he is willing to review the referral but that if the patient does get a Peg placed they will be unable to accept her. Referral information faxed to Noe at [facility]. Discharge plan: SNF
[2021-08-08 16:18] VITALS: BP 125/57; PULSE 80; TEMP 98.2
[2021-08-08 19:55] VITALS: BP 133/70; PULSE 85; TEMP 98.1
--- NOTE | 2021-08-08 20:15 | NUR ---
ASSESSMENT COMPLETE. PT IN BED COMPLAINING OF SEVERE LEG PAIN, THAT SHE RATES AT A 9. PT GIVEN NORCO FOR PAIN. PT DENIES PALPITATIONS, SOB OR DIZZINESS. PT STATES SHE HAS NO OTHER NEEDS AT THIS TIME. CALL LIGHT WITHIN REACH.
[2021-08-09] VITALS (9 sets, daily range): BP systolic 106–132; BP diastolic 56–69; PULSE 73–89; TEMP 97.9–98.6
[2021-08-09 06:57] LABS: BASO % 0.4 % (0.0-2.0); EOS # 0.1 K/mm3 (0.0-0.7); EOS % 3.1 % (0-4.0); GRAN # 3.1 K/mm3 (1.4-6.5); LYMPH # 0.7 K/mm3 (1.2-3.4); LYMPH % 14.8 % (20.0-51.0); MEAN CELL VOLUME 90 fl (80.0-100.0); MEAN CORPUSCULAR HGB CONC 34 g/dl (33.0-37.0); MEAN PLATELET VOLUME 12.4 fl (7.4-10.4); MONO # 0.5 K/mm3 (0.1-0.6); MONO % 11.6 % (1.7-9.3); PLATELET COUNT 146 K/mm3 (130-400); RED BLOOD COUNT 3.17 M/mm3 (4.10-5.30); REDCELL DISTRIBUTION WIDTH-CV 14.1 % (11.5-14.5)
--- NOTE | 2021-08-09 07:00 | NUR ---
PT'S NPO FOR SURGERY THIS AM. PT'S PAIN WAS CONTROLLED MOST OF THE NIGHT AFTER HER 2000HRS NORCO DOSE, HOWEVER AROUND 0630HRS, SHE WAS COMPLAINING OF GENERALIZED PAIN, SHE RATED AT A 10. MORE NORCO GIVEN. PT RESTING IN BED AWAITING SURGERY. PT DENIES PALPITATIONS, SOB OR DIZZINESS. PT STATES SHE HAS NO OTHER NEEDS AT THIS TIME. CALL LIGHT WITHIN REACH.
--- NOTE | 2021-08-09 07:00 | NUR ---
Report received from ANDRE Hansen. Pt in bed resting, leaving floor for surgery shortly, will conitnue to monitor.
[2021-08-09 07:12] LABS: CALCIUM 8.7 mg/dL (8.4-10.2); CREATININE, serum 0.6 mg/dL (0.57-1.11); POTASSIUM 3.1 mmol/L (3.5-4.5)
[2021-08-09 07:19] LABS: HEMATOCRIT 28.5 % (37.0-47.0); HEMOGLOBIN 9.6 g/dl (12.5-16.0); MEAN CORPUSCULAR HEMOGLOBIN 30 pg (27.0-31.0)
--- NOTE | 2021-08-09 11:08 | NUR ---
Assessment charted. PT in bed resting after returning from surgery, lethargic and sleepy, no interest in PO intake at this time. Per hospitalist and surgeon okay to use G tube for medicaitons, pt tolerated well, flushed well and drained per gravity with no complications. Some shadowing on dressing on abd where gtube was inserted. Pt denies needs. INT to with IVF fluids infusing, will continue to monitor.
--- NOTE | 2021-08-09 18:24 | NUR ---
Pt has done well over shift. Resting in bed most of day between disturbances, PRN pain and nausea meds given. Pt threw up twice after received meds via G tube. Shadowing remains around g-tube dressing. Started tube feedings per orders at 20 ml/hour to increase after 8 hours and 30 mls flushes every 4 hours. Denies needs, will give report to favian blood who will resume care.
--- NOTE | 2021-08-09 21:30 | NUR ---
ASSEESSMENT COMPLETE. PT RESTING IN BED NAPPING. PT WANTS TO WAIT UNTIL AROUND 2300HRS TO TAKE HER MEDS. PT COMPLAINS OF GENERALIZED PAIN, BUT DOES NOT WANT ANY PAIN MEDICATION AT THIS TIME. PT DENIES PALPITATIONS, SOB OR DIZZNESS. PT STATES SHE HAS NO OTHER NEEDS AT THIS TIME. CALL LIGHT WITHIN REACH.
[2021-08-10 00:30] VITALS: BP 109/55; PULSE 84; TEMP 98.5
[2021-08-10 03:58] VITALS: BP 125/52; PULSE 86; TEMP 98.3
[2021-08-10 07:01] LABS: BASO % 0.3 % (0.0-2.0); EOS # 0.1 K/mm3 (0.0-0.7); EOS % 0.9 % (0-4.0); GRAN # 4.9 K/mm3 (1.4-6.5); GRAN % 76.3 % (42.2-75.2); LYMPH # 0.6 K/mm3 (1.2-3.4); MEAN CELL VOLUME 90 fl (80.0-100.0); MEAN CORPUSCULAR HGB CONC 34 g/dl (33.0-37.0); MEAN PLATELET VOLUME 12.9 fl (7.4-10.4); MONO # 0.8 K/mm3 (0.1-0.6); MONO % 11.9 % (1.7-9.3); PLATELET COUNT 163 K/mm3 (130-400); RED BLOOD COUNT 3.13 M/mm3 (4.10-5.30); REDCELL DISTRIBUTION WIDTH-CV 14.4 % (11.5-14.5)
[2021-08-10 07:09] LABS: HEMATOCRIT 28.2 % (37.0-47.0); HEMOGLOBIN 9.5 g/dl (12.5-16.0); MEAN CORPUSCULAR HEMOGLOBIN 30 pg (27.0-31.0)
--- NOTE | 2021-08-10 07:18 | NUR ---
PT RESTING IN BED. PT COMPLAINS OF BACK PAIN THAT SHE RATES AT A 8.5. IV MORPHINE GIVEN. PT TOLERATING G-TUBE FEEDINGS AND MEDS. PT DENIES PALPITATIONS, SOB AND DIZZINESS. PT STATES SHE HAS NO OTHER NEEDS AT THIS TIME. CALL LIGHT WITHIN REACH.
[2021-08-10 07:26] LABS: CALCIUM 8.2 mg/dL (8.4-10.2); CREATININE, serum 0.63 mg/dL (0.57-1.11); MAGNESIUM 1.7 mg/dL (1.6-2.6); PHOSPHOROUS 2.3 mg/dL (2.3-4.7); POTASSIUM 3.4 mmol/L (3.5-4.5)
[2021-08-10 07:49] VITALS: BP 102/51; PULSE 83; TEMP 98.5
--- NOTE | 2021-08-10 08:00 | NUR ---
PATIENT IS ORIENTED X3 BUT SLEEPS A LOT, ARROUSES TO VERBAL STIMULI. VSS. NO C/O N/V OR PAIN. G-TUBE INPLACE AND TUBE FEEDING STOPPED PER ORDERS. AM MEDS CRUSHED AND GIVEN IN G-TUBE, PATIENT TOLERATED WELL. ABD IS ROUND, TIGHT AND WITH POSITIVE BOWL SOUNDS. PATIENT ON CLEAR LIQUID DIET BUT SEEMS UNINTERESTED IN ORAL INTAKE EVEN AFTER EGD WITH DILATION. IV FLUIDS INFUSING VIA PUMP INTO LEFT HAND IV. PSYCH CONSULTED YESTERDAY. PATIENT WILL OCCATIONALLY HAVE ISSUES WITH BEHAVIORS MOSTLY EMOTIONAL OUTBURSTS. PATIENT IS CURRENTLY RELAXED AND RESTING UP IN BED WITH HER STUFFED ANIMAL. PATIENT SEEMS TO PREFER TO BE TALKED TO LIKE A CHILD. AM BS WAS 117. PT/OT/ST CONSULTED. HEAD TO TOE ASSESSMENT COMPLETE, SEE CHARTING. NO OTHER NEEDS AT THIS TIME. CALL LIGHT IN REACH.
[2021-08-10 11:54] VITALS: BP 124/61; PULSE 81; TEMP 97.9
--- NOTE | 2021-08-10 15:23 | NUR ---
Patient was back and forth today about going home with HH vs SNF. Patient tells physicians that she wants to go to SNF but tells me later in the day she is not going and will be going home with HH. After explaining the benefit of going to a SNF that patient finally agrees with going to [facility]. Noe with [facility] accepts patient. He reports that due to [facility] having phone issues he has been unable to get ahold of them to obtain the DME the patient will need. Noe requests that if this patient if one of the first ones rounded on in the morning they will be able to transport pretty quickly. Discharge plan: [facility] SN[facility]
[2021-08-10 16:06] VITALS: BP 112/61; PULSE 81; TEMP 98.4
[2021-08-10 20:00] VITALS: BP 116/54; PULSE 81; TEMP 98.5
--- NOTE | 2021-08-10 21:45 | NUR ---
Patient is resting in bed, alert and oriented x 4, VSS. Tube feeding in place and running. BS WNL. Assessment completed. Medicatyions provided. No further needs at this time. Call light within reach.
[2021-08-11 00:15] VITALS: BP 110/47; PULSE 82; TEMP 98.6
[2021-08-11 04:50] VITALS: BP 106/49; PULSE 83; TEMP 98.5
--- NOTE | 2021-08-11 06:59 | NUR ---
Patient complain of pain in her legs and asked for medication. PRN provided. She has been receiving fluids and feeding along the night. All needs met. Shift report given to day RN.
[2021-08-11 07:07] LABS: CALCIUM 8.2 mg/dL (8.4-10.2); CREATININE, serum 0.59 mg/dL (0.57-1.11); MAGNESIUM 1.7 mg/dL (1.6-2.6); PHOSPHOROUS 2.1 mg/dL (2.3-4.7); POTASSIUM 3.1 mmol/L (3.5-4.5)
[2021-08-11] MEDS ORDERED: MAG-OX 400400 MG/TAB PO (07:54)
[2021-08-11 08:08] VITALS: BP 84/41; PULSE 80; TEMP 98.3
[2021-08-11] MEDS ORDERED: NORCO 325 MG-51 TAB PO (08:48)
--- NOTE | 2021-08-11 11:00 | NUR ---
Pt refusing medications prior to discharge, requests to take them at the SNF d/t fear of them causing upset.
[2021-08-11 11:14] VITALS: BP 103/58; PULSE 82; TEMP 98.1
--- NOTE | 2021-08-11 11:57 | NUR ---
Pt discharged to [facility] via WC. Attempted to call report, no answer, messge left.
--- NOTE | 2021-08-11 12:29 | NUR ---
[facility] nurse calls to receive report. Report given.
== END 2021-08-11 11:50 | DRG 391 ==
LOC: COL.ER 14:29 → MEDICAL 20:26
PROVIDERS: Internal Medicine; Nurse Practitioner Family; Personal Emergency Response Attendant; Physician Assistant; Surgery; ADMIT Internal Medicine
PROC: 0D718ZZ Dilation of Upper Esophagus, Via Natural or Artificial Opening Endoscopic (ICD-10-PCS; 2021-08-07)
PROC: 0DB18ZX Excision of Upper Esophagus, Via Natural or Artificial Opening Endoscopic, Diagnostic (ICD-10-PCS; 2021-08-07)
PROC: 0DH60UZ Insertion of Feeding Device into Stomach, Open Approach (ICD-10-PCS; principal; 2021-08-09 07:30)
DX: K22.2 Esophageal obstruction (principal); E43 Unspecified severe protein-calorie malnutrition; M35.00 Sjogren syndrome, unspecified; M06.9 Rheumatoid arthritis, unspecified; E86.0 Dehydration; M79.7 Fibromyalgia; M32.9 Systemic lupus erythematosus, unspecified; E87.6 Hypokalemia; E83.42 Hypomagnesemia; F41.1 Generalized anxiety disorder; F32.9 Major depressive disorder, single episode, unspecified; F43.20 Adjustment disorder, unspecified; E83.39 Other disorders of phosphorus metabolism; I45.81 Long QT syndrome; Z20.822 Contact with and (suspected) exposure to COVID-19; Z86.73 Personal history of transient ischemic attack (TIA), and cerebral infarction without residual deficits; Z87.891 Personal history of nicotine dependence; Z68.26 Body mass index [BMI] 26.0-26.9, adult; Z23 Encounter for immunization
CPT/HCPCS: 99222-AI; 99231-AI; 99232-AI; 99233-AI; 99239; C1726; C9113; J0690; J0780; J1170; J1650; J2270; J2405; J2550; J2704; J3010; J3475; J3480; J7030; Q9967

== ENCOUNTER → 2021-09-25 | Outpatient (CLI) | payer MEDICARE | LOC: DIET.TELE 12:22 ==

== ENCOUNTER 2022-01-05 15:19 | Day surgery (SDC) | payer MEDICARE, MEDICAID ==
[~2022-01-05] VITALS: Ht 154.9 cm; Wt 57.7 kg
[2022-01-05] MEDS ORDERED: PREDNISONE20 MG PO (15:52)
[2022-01-05] MEDS ORDERED: LYRICA 150MG C150 MG PO (15:52)
[2022-01-05 15:53] VITALS: BP 105/56; PULSE 78; TEMP 97.6
[2022-01-05] MEDS ORDERED: NORCOELIX PO (15:53)
[2022-01-05 16:25] VITALS: BP 103/55; PULSE 78; TEMP 97.6
--- NOTE | 2022-01-05 16:25 | NUR ---
Per report from DR: one set of vitals required for discharge. No additonal documentation or instructions needed, no discharge signature.
--- NOTE | 2022-01-05 16:30 | NUR ---
Vitals obtained. Pt assisted with changing into personal clothes by her daughter, then dismissed from [facility] via [place] to the pt entrence by Evy POWELL and transferred to a private car, daughter is driving.
== END 2022-01-05 16:35 | disposition home or self-care (01) ==
LOC: SDCO 15:19
DX: K94.23 Gastrostomy malfunction (principal)

== ENCOUNTER 2022-05-22 12:07 | Emergency (ER) | payer MEDICARE, MEDICAID ==
[~2022-05-22] VITALS: Ht 154.9 cm; Wt 63.6 kg
[2022-05-22 12:07] VITALS: TEMP 97.9
[~2022-05-22 12:07] MED LIST changes: +LYRICA 150MG C150 MG PO; +NORCOELIX PO; +PREDNISONE20 MG PO
[2022-05-22 12:46] LABS: HEMATOCRIT 39.2 % (37.0-47.0); HEMOGLOBIN 12.4 g/dl (12.5-16.0); MEAN CELL VOLUME 95 fl (80.0-100.0); MEAN CORPUSCULAR HEMOGLOBIN 30 pg (27-31); MEAN CORPUSCULAR HGB CONC 32 g/dl (33.0-37.0); PLATELET COUNT 267 K/mm3 (130-400); RED BLOOD COUNT 4.13 M/mm3 (4.10-5.30); REDCELL DISTRIBUTION WIDTH-CV 14.1 % (11.5-14.5)
[2022-05-22 12:57] LABS: ALBUMIN 3.2 gm/dL (3.5-5.0); ALKALINE PHOSPHATASE 118 U/L (40-150); ANION GAP 9 mmol/L (7-16); AST,SGOT 12 U/L (5-34); BILIRUBIN,TOTAL 0.3 mg/dL (0.2-1.2); BLOOD UREA NITROGEN 11 mg/dL (10-20); CALCIUM 9.1 mg/dL (8.4-10.2); CARBON DIOXIDE 28 mmol/L (22-29); CHLORIDE 107 mmol/L (98-107); CREATININE, serum 0.87 mg/dL (0.57-1.11); GLUCOSE 76 mg/dL (70-99); POTASSIUM 4.1 mmol/L (3.5-4.5); SODIUM 144 mmol/L (136-145); TOTAL PROTEIN 5.8 gm/dL (6.2-8.1)
[2022-05-22 13:01] LABS: ALANINE AMINOTRANSFERASE < 6 U/L (0-55)
[2022-05-22 13:16] LABS: BAND 1 % (0-10); BASOPHIL 1 % (0-2); EOSINOPHIL 30 % (0-4); HYPOCHROMIA 1+; LYMPHOCYTE 23 % (20.0-51.0); NEUTROPHILS 37 % (42.0-75.2); PLATELET ESTIMATE NORMAL (NORMAL)
[2022-05-22 13:56] LABS: COLLECTION METHOD CLEAN CATCH
[2022-05-22 14:04] LABS: MUCOUS Present (NOT PRESENT); URINE BACTERIA Rare /hpf (NONE SEEN); URINE RBC 0-2 /hpf (0-2)
[2022-05-22 14:06] LABS: PH 5.5 (5-8); URINE APPEARANCE Clear (CLEAR/HAZY); URINE BLOOD Negative (NEGATIVE); URINE COLOR Yellow (YELLOW); URINE GLUCOSE Negative (NEGATIVE); URINE KETONE Negative (NEGATIVE); URINE NITRATE Negative (NEGATIVE); URINE PROTEIN(semi-quant) Negative (NEGATIVE); URINE UROBILINOGEN 0.2 (NEGATIVE)
[2022-05-22 14:29] VITALS: BP 102/57; PULSE 56
== END 2022-05-22 14:40 | disposition home or self-care (01) ==
LOC: COL.ER 12:07
PROVIDERS: Family Medicine
DX: R55 Syncope and collapse (principal)

== ENCOUNTER 2022-11-04 16:23 | Emergency (ER) | payer MEDICARE, MEDICAID ==
[~2022-11-04] VITALS: Ht 154.9 cm; Wt 66.8 kg
[2022-11-04 16:25] VITALS: BP 131/66; TEMP 98.6
[2022-11-04 18:36] VITALS: PULSE 91
[2022-11-06] MEDS ORDERED: LAMICTAL150 MG PEG (07:28)
[2022-11-06] MEDS ORDERED: PLAQUENIL 200M200 MG PEG (07:46)
[2022-11-06] MEDS ORDERED: ZOLOFT 50MG50 MG PEG ×2 (07:48→07:49)
[2022-11-06] MEDS ORDERED: LYRICA 150MG C150 MG PEG (07:50)
[2022-11-06] MEDS ORDERED: LYRICA 150MG C150 MG PO (07:51)
[2022-11-06] MEDS ORDERED: B-121000 MCG PEG (07:52)
[2022-11-06] MEDS ORDERED: VITAMIND3 5000 PEG (07:54)
[2022-11-06] MEDS ORDERED: OTEZLA PO (07:55)
[2022-11-06] MEDS ORDERED: TYLENOL 500MG500 MG PO (07:56)
[2022-11-06] MEDS ORDERED: MOTRIN PEG (07:57)
[2022-11-06] MEDS ORDERED: PROMETHAZINE PEG (07:59)
[2022-11-06] MEDS ORDERED: ZYRTEC SYRUP1 MG/ML PO (08:01)
== END 2022-11-04 18:39 | disposition home or self-care (01) ==
LOC: COL.ER 16:23
DX: K94.23 Gastrostomy malfunction (principal)

== ENCOUNTER 2023-10-05 13:29 | Inpatient (IN) | payer MEDICARE, MEDICAID ==
[~2023-10-05] VITALS: Ht 152.4 cm; Wt 57.8 kg
[~2023-10-05 13:29] MED LIST changes: +B-121000 MCG PEG; +LAMICTAL150 MG PEG; +LYRICA 150MG C150 MG PEG; +MOTRIN PEG; +OTEZLA PO; +PLAQUENIL 200M200 MG PEG; +PROMETHAZINE PEG; +TYLENOL 500MG500 MG PO; +VITAMIND3 5000 PEG; +ZOLOFT 50MG50 MG PEG; +ZYRTEC SYRUP1 MG/ML PO
[2023-10-05 13:58] LABS: BASO % 0.7 % (0.0-2.0); GRAN % 67.7 % (42.2-75.2); HEMOGLOBIN 12.1 g/dl (12.5-16.0); LYMPH # 1.4 K/mm3 (1.2-3.4); LYMPH % 23.9 % (20.0-51.0); MEAN CELL VOLUME 99 fl (80.0-100.0); MEAN CORPUSCULAR HEMOGLOBIN 33 pg (27-31); MEAN CORPUSCULAR HGB CONC 33 g/dl (33.0-37.0); MONO # 0.4 K/mm3 (0.1-0.6); MONO % 7.5 % (1.7-9.3); PLATELET COUNT 228 K/mm3 (130-400); REDCELL DISTRIBUTION WIDTH-CV 13.4 % (11.5-14.5)
[2023-10-05] MEDS ORDERED: NS 1,000 ML IV ONE (14:00)
[2023-10-05 14:01] LABS: HEMATOCRIT 36.7 % (37.0-47.0)
[2023-10-05 14:10] LABS: ALANINE AMINOTRANSFERASE 13 U/L (0-55); ALBUMIN 2.7 gm/dL (3.5-5.0); ALKALINE PHOSPHATASE 77 U/L (40-150); ANION GAP 12 mmol/L (7-16); AST,SGOT 18 U/L (5-34); BILIRUBIN,TOTAL 0.3 mg/dL (0.2-1.2); BLOOD UREA NITROGEN < 5 mg/dL (10-20); CARBON DIOXIDE 25 mmol/L (22-29); CHLORIDE 107 mmol/L (98-107); CREATININE, serum 1.05 mg/dL (0.57-1.11); GLUCOSE 76 mg/dL (70-99); SODIUM 144 mmol/L (136-145); TOTAL PROTEIN 5.4 gm/dL (6.2-8.1)
[2023-10-05 14:17] LABS: TROPONIN-I 0.158 ng/mL (0.00-0.033)
[2023-10-05 14:23] LABS: COLLECTION METHOD CLEAN CATCH
[2023-10-05 14:46] LABS: SQUAMOUS EPITHELIAL 0-2 /hpf (0-10); URINE APPEARANCE Clear (CLEAR/HAZY); URINE BACTERIA Occasional /hpf (NONE SEEN); URINE BLOOD Negative (NEGATIVE); URINE COLOR ORANGE (YELLOW); URINE GLUCOSE Negative (NEGATIVE); URINE KETONE Negative (NEGATIVE); URINE NITRATE Positive (NEGATIVE); URINE PROTEIN(semi-quant) Negative (NEGATIVE); URINE UROBILINOGEN 0.2 E.U/dL (0.2-1.0)
[2023-10-05] MEDS ORDERED: CYMBALTA 20MG20 MG PO (15:47)
[2023-10-05] MEDS ORDERED: Dextrose 50% Water 25 GM/50 ML SYRINGE IV ONE ×2 (16:15→17:15)
[2023-10-05 17:00] VITALS: BP_SYST 104
[2023-10-05 17:37] VITALS: BP 104/66; PULSE 66; TEMP 98.5
[2023-10-05] MEDS ORDERED: D5 1/2 NS & 20 mEq KCl 1,000 ML IV SCH (18:00)
[2023-10-05] MEDS ORDERED: Acetaminophen 325 MG TAB PO PRN (18:00)
[2023-10-05] MEDS ORDERED: Ondansetron 4 MG/2 ML VIAL IV PRN (18:00)
[2023-10-05] MEDS ORDERED: Potassium Bicarbonate/Citrate 20 MEQ Effervescent TAB PO ONE (18:30)
[2023-10-05] MEDS ORDERED: HYDROcodone/Acetaminophen 7.5 MG-325 MG/15 ML Oral Soln PO PRN (18:45)
--- NOTE | 2023-10-05 18:47 | NUR ---
Patient admitted to unit around 1730. Patient alert and oriented x4. Complains of chronic pain to lower back. Skin is intact, multiple scattered bruises noted to bilateral arms. IV to right forearm placed in ED. Patient is weak and required x3 assist to slide from stretcher to bed. States she walks when she has "good days" at home with a walker, but if she is weak she stays in her chair. States she has not been doing tube feedings due to increased diarrhea from them, has been eating rice. States she wishes she could eat instead of have tube. Epic Cadence Analyst consult ordered. States she has a POA but it is her daughter who is out of country for work, has a son-in-law that lives down the street, but she doesn't talk to him. States she doesn't want him called unless it is an absolute emergency. Med rec done, but multiple medications have unknown dose and/or patient is not taking prescribed dose. Medications that patient is unsure of are flagged in med reconciliation and comment left with how patient states she takes them. Patient states she doesn't feel good, blood sugar checked and noted to be 49. No hypoglycemia orders in place, two grape juices provided and D5 1/2 NS with 20 MEQ potassium running at 100ml/hr through right forearm. Dinner on its way. Patient in bed with call light in reach.
--- NOTE | 2023-10-05 19:10 | NUR ---
BEDSIDE SHIFT REPORT RECEIVED FROM RENETTA CRAWLEY RN. PATIENT SITTING UP IN BED TALKING TO PCT. PATIENT DENIES CONCERNS OR NEEDS AT THIS TIME.
[2023-10-05 19:15] VITALS: BP 102/56; PULSE 82; TEMP 97.6
[2023-10-05 20:00] VITALS: BP_SYST 102
[2023-10-05] MEDS ORDERED: Pregabalin 150 MG CAP PO SCH (21:00)
[2023-10-05] MEDS ORDERED: lamoTRIgine 100 MG TAB PO SCH (21:00)
[2023-10-05] MEDS ORDERED: Hydroxychloroquine 200 MG TAB PO SCH (21:00)
[2023-10-05 23:24] VITALS: BP 100/43; PULSE 73; TEMP 97.5
[2023-10-06] VITALS (12 sets, daily range): BP systolic 88–102; BP diastolic 44–61; PULSE 67–79; TEMP 98.1–98.4
--- NOTE | 2023-10-06 04:29 | NUR ---
PATIENT RESTING IN BED. UNEVENTFUL NIGHT. BLOOD GLUCOSE LEVELS WNL. PATIENT DENIES PAIN OR DISCOMFORT AT THIS TIME.
--- NOTE | 2023-10-06 08:00 | NUR ---
SHIFT ASSESSMENT COMPLETE. PATIENT RESTING IN BED TALKING ON PHONE AND AWAITING BREAKFAST. ALL MORING MEDS GIVEN PER ORDERS THROUGH PATIENT G TUBE. PATIENT REQUESTING TO SEE DIETARY TODAY TO DISCUSS TUBE FEEDINGS, PATIENT STATING SHE FEELS HUNGRY BETWEEN MEALS AND WANTS TO ADD TUBE FEEDINGS, NURSE ADVISED BLOW PIT OPERATOR. PATIENT HAD NO OTHER REQUEST OR COMPLAINTS. FALL PRECAUTIONS IN PLACE AND CALL LIGHT IN REACH.
[2023-10-06 08:11] LABS: BASO % 0.6 % (0.0-2.0); EOS # 0.2 K/mm3 (0.0-0.7); EOS % 2.7 % (0.0-4.0); GRAN # 3.8 K/mm3 (1.4-6.5); GRAN % 61.3 % (42.2-75.2); LYMPH # 1.6 K/mm3 (1.2-3.4); LYMPH % 26.1 % (20.0-51.0); MEAN CELL VOLUME 99 fl (80.0-100.0); MEAN CORPUSCULAR HGB CONC 33 g/dl (33.0-37.0); MEAN PLATELET VOLUME 12.5 fl (7.4-10.4); MONO # 0.6 K/mm3 (0.1-0.6); PLATELET COUNT 178 K/mm3 (130-400); RED BLOOD COUNT 2.92 M/mm3 (4.10-5.30); REDCELL DISTRIBUTION WIDTH-CV 13.5 % (11.5-14.5)
[2023-10-06 08:20] LABS: HEMATOCRIT 28.9 % (37.0-47.0); HEMOGLOBIN 9.5 g/dl (12.5-16.0); MEAN CORPUSCULAR HEMOGLOBIN 33 pg (27-31)
[2023-10-06 08:36] LABS: ANION GAP 8 mmol/L (7-16); BLOOD UREA NITROGEN < 5 mg/dL (10-20); CALCIUM 7.7 mg/dL (8.4-10.2); CARBON DIOXIDE 24 mmol/L (22-29); CHLORIDE 111 mmol/L (98-107); CREATININE, serum 0.88 mg/dL (0.57-1.11); GLUCOSE 83 mg/dL (70-99); MAGNESIUM 1.5 mg/dL (1.6-2.6); PHOSPHOROUS 2.6 mg/dL (2.3-4.7); SODIUM 143 mmol/L (136-145)
[2023-10-06 08:39] LABS: POTASSIUM 2.8 mmol/L (3.5-4.5)
[2023-10-06] MEDS ORDERED: Magnesium Sulfate 8% 50 ML IV ONE (08:45)
--- NOTE | 2023-10-06 08:46 | NUR ---
CRITICAL LAB CALLED TO HOSPITALIST POTASSIUM 2.8.
[2023-10-06] MEDS ORDERED: Cyanocobalamin (Vit B-12) 1,000 MCG TAB PO SCH (09:00)
[2023-10-06] MEDS ORDERED: Sertraline 50 MG TAB PO SCH (09:00)
[2023-10-06] MEDS ORDERED: Cholecalciferol (Vit D3) 5000 Units Capsule PO SCH (09:00)
[2023-10-06] MEDS ORDERED: DULoxetine 20 MG CAP PO SCH (09:00)
[2023-10-06] MEDS ORDERED: Potassium Bicarbonate/Citrate 20 MEQ Effervescent TAB PO SCH (11:00)
--- NOTE | 2023-10-06 12:05 | NUR ---
SW met with patient to complete intake. Patient states that she lives in [facility] alone. Next of kin is daughter Sonja Hernandez [phone] whom she states is currently out of the [place] next to contact would be son Shyam Hernandez [phone]. Patient utilizes a walker, is independent with ADL, currently lives alone and has had multiple falls recently. PCP is Dr. Maldonado, and pharmacy is [facility]. patient provides that daughter has been appointed DPOA/HC. Patient utilize [facility] for [facility] health services 3xs per week. Patient provides her plan would be to return to her home, but is sure if she will be safe to do so. DC plan: TBD
--- NOTE | 2023-10-06 12:58 | NUR ---
PATIENT CALLED REPORTING NAUSEA, MEDICATION ADMINISTERED ORDERED. WILL CONTINUE TO MONITOR.
[2023-10-06 18:16] LABS: ANION GAP 6 mmol/L (7-16); BLOOD UREA NITROGEN < 5 mg/dL (10-20); CALCIUM 7.7 mg/dL (8.4-10.2); CARBON DIOXIDE 24 mmol/L (22-29); CHLORIDE 110 mmol/L (98-107); CREATININE, serum 0.82 mg/dL (0.57-1.11); GLUCOSE 91 mg/dL (70-99); MAGNESIUM 2.9 mg/dL (1.6-2.6); POTASSIUM 4.6 mmol/L (3.5-4.5); SODIUM 140 mmol/L (136-145)
--- NOTE | 2023-10-06 22:29 | NUR ---
Received report from ELISABETH Pardo. Pt is alert and resting in bed with call light within reach and bed alarms on. Pt does not look in distress at this time. Will continue with pt care.
[2023-10-07] VITALS (10 sets, daily range): BP systolic 88–135; BP diastolic 55–72; PULSE 72–82; TEMP 97.8–98.2
--- NOTE | 2023-10-07 06:08 | NUR ---
Pt had an uneventful night. Pt is resting in bed with call light within reach. Pt has incont voids if briefs throughout the night. Pt is on room air and has D5 1/2 NS & KCl fuilds running and blood sugars have been within normal range. Will give report to day shift nurse.
[2023-10-07 07:17] LABS: ANION GAP 5 mmol/L (7-16); BLOOD UREA NITROGEN < 5 mg/dL (10-20); CALCIUM 7.8 mg/dL (8.4-10.2); CARBON DIOXIDE 28 mmol/L (22-29); CHLORIDE 109 mmol/L (98-107); CREATININE, serum 0.81 mg/dL (0.57-1.11); GLUCOSE 73 mg/dL (70-99); MAGNESIUM 2.4 mg/dL (1.6-2.6); SODIUM 142 mmol/L (136-145)
[2023-10-07] MEDS ORDERED: NS IV ONE (09:00)
[2023-10-07] MEDS ORDERED: SODIUM PHOSPHATE IV ONE (09:00)
[2023-10-07] MEDS ORDERED: HYCET SOLN PEG (09:16)
[2023-10-07] MEDS ORDERED: LYRICA 150MG C150 MG PEG ×2 (09:18→09:19)
[2023-10-07] MEDS ORDERED: TYLENOL 500MG500 MG PEG (09:20)
[2023-10-07] MEDS ORDERED: OTEZLA PEG (09:21)
[2023-10-07] MEDS ORDERED: ZYRTEC SYRUP1 MG/ML PEG (09:22)
[2023-10-07] MEDS ORDERED: CYMBALTA 20MG20 MG PEG (09:23)
[2023-10-07] MEDS ORDERED: ZOFRAN ODT4 MG PEG (09:24)
--- NOTE | 2023-10-07 10:27 | NUR ---
Pt alert and oriented this AM. Does complain of some nausea but no vomiting; PRN zofran given. States does not want breakfast this AM. Dr. Bruno present in room. Pt okay with us resuming tube feeds and trying new formula. Meds given via PEG tube. Call light in reach.
[2023-10-07] MEDS ORDERED: Pregabalin 150 MG CAP PO ONE (10:45)
--- NOTE | 2023-10-07 12:08 | NUR ---
IV to right FA will not flush and does not draw back blood; removed. Attempted to start new site x2 but unsuccessful. AIV's contacted and will come up shortly.
--- NOTE | 2023-10-07 16:20 | NUR ---
Review Nurse met with patient to follow up on discharge planning and review recommendation for SNF. SW discussed SNF options as well as swing bed. Patient is firm that she wants to return home. Patient has in home services through [facility] [place] and is agreeable to have Home Health come in to provide skilled services. JANET provided Medicare.gov list of agencies and she selected [facility]. JANET contacted Joseph at [facility] and faxed referral. Joseph advised they will accept referral. Patient is being restarted on tube feeds and gets supplies through [facility], although her formula will change and require a new order. JANET contacted [facility] and provided update. Discharge Planning: Home with
--- NOTE | 2023-10-07 19:09 | NUR ---
PATIENT RESTING IN BED WITH TV ON WITH FRIEND AT BEDSIDE WITH NO ACUTE DISTRESS NOTED. PATIENT ON ROOM AIR. TUBE FEEING RUNING WITH NO COMPLICATIONS NOTED. TELEMETRY INTACT. PATIENT CARE ASSUME FROM CARLOS EDUARDO Santillan AT THIS TIME. PATIENT DENIES ANY NEEDS. BED IN LOW POSITION WITH WHEELS LOCKED WITH RAILS UP X3 AND CALL LIGHT WITHIN REACH.
[2023-10-07] MEDS ORDERED: DULoxetine 20 MG CAP PO SCH (21:00)
[2023-10-07] MEDS ORDERED: Pregabalin 150 MG CAP PO SCH (21:00)
--- NOTE | 2023-10-07 21:55 | NUR ---
PATIENT RESTING IN BED WITH TV ON WITH NO ACUTE DISTRESS. PATIENT ON ROOM AIR. TUBE FEEDING INFUSING INTO PEG TUBE WITH NO COMPLICATIONS NOTED. ASSESSMENT AND MEDICATION ADMINISTRATION COMPLETED AT THIS TIME. PATIENT TOLERATED WELL. PATIENT DENIES ANY NEEDS AT THIS TIME. BED IN LOW POSITION WITH WHEELS LOCKED WITH RAILS UP X3 AND CALL LIGHT WITHIN REACH.
[2023-10-08] VITALS (13 sets, daily range): BP systolic 83–134; BP diastolic 40–71; PULSE 71–80; TEMP 97.8–98.9
[2023-10-08 07:30] LABS: CALCIUM 8.4 mg/dL (8.4-10.2); CREATININE, serum 0.87 mg/dL (0.57-1.11); PHOSPHOROUS 4.3 mg/dL (2.3-4.7); POTASSIUM 4.3 mmol/L (3.5-4.5)
[2023-10-08] MEDS ORDERED: Pregabalin 150 MG CAP PO SCH (09:00)
--- NOTE | 2023-10-08 09:49 | NUR ---
Patient alert and oriented x4. Shift assessment complete, no new variances noted. Redness to left arm from previous IV infiltrating recently. Tube feeding currently going per orders, feeding increased to 75ml from 50ml. Patient complained of nausea after medications, states that medicine always makes her nausous. PRN Zofran administered. Patient resting in bed with call light in reach, all needs met at this time.
--- NOTE | 2023-10-08 17:49 | NUR ---
Patient remains stable. States nausea is controlled at this time. Continuous feeding paused from 1340 to 1645 due to increased discomfort. Marine Diver confirmed this was okay due to patient's ongoing difficulty tolerating feeds and gastric emptying study that will be done tomorrow. Feeding running again, new feeding and water bag hung. Rate is 75ml/hr per orders. Education provided on being NPO at midnight for study. Patient verbalized understanding. States her last bowel movement was yesterday, and she feels they have improved. All needs met at this time.
[2023-10-08] MEDS ORDERED: NS 1,000 ML IV ONE (18:00)
--- NOTE | 2023-10-08 18:43 | NUR ---
PATIENT RESTING IN BED WITH TV ON WITH NO ACUTE DISTRESS NOTED. PATIENT ON ROOM AIR. TUBE FEEDING INFUSING INTO PEG TUBE WITH NO COMPLICATIONS NOTED. INT TO LEFT WRIST INTACT WITH NO COMPLICATIONS NOTED. TELEMETRY INTACT. PATIENT CARE ASSSUMED FROM REGLA AT THIS TIME. BED IN LOW POSITION WITH WHEELS LOCKED WITH RAILS UP X3 AND CALL LIGHT WITHIN REACH.
--- NOTE | 2023-10-08 19:15 | NUR ---
PATIENT RESTING IN BED WITH TV ON WITH NO ACUTE DISTRESS NOTED. PATIENT ON ROOM AIR. JEVITY 1.5 INFUSING INTO PEG TUB WITH NO COMPLICATIONS NOTED. INT TO LEFT WRIST INTACT WITH NO COMPLICATIONS NOTED. ASSESSMENT COMPLETED. PATIENT TOLERATED WELL. BRIEF CHANGED AND PATIENT DID OWN SADIE CARE. PATIENT DENIES ANY OTHER NEEDS AT THIST LEE. BED IN LOW POSITION WITH WHEELS LOCKED WITH RAILS UP X3 AND CALL LIGHT WITHIN REACH.
--- NOTE | 2023-10-08 22:10 | NUR ---
PATIENT RESTING IN BED WITH TV ON WITH NO ACUTE DISTRESS. PATIENT ON ROOM AIR. MEDICATION ADMINISTRATION COMPLETED AT THIS TIME. SEE EMAR. PATIENT TOLERATED WELL. ALL NEEDS MET. BED IN LOW POSITION WITH WHEELS LOCKED WITH RAILS UP X3 AND CALL LIGHT WITHIN REACH.
[2023-10-09] VITALS (7 sets, daily range): BP systolic 100–101; BP diastolic 37–69; PULSE 68–69; TEMP 97.6–97.9
[2023-10-09 07:54] LABS: BASO % 0.7 % (0.0-2.0); GRAN # 2.5 K/mm3 (1.4-6.5); GRAN % 62.4 % (42.2-75.2); HEMATOCRIT 31.7 % (37.0-47.0); HEMOGLOBIN 10.5 g/dl (12.5-16.0); LYMPH # 1.1 K/mm3 (1.2-3.4); LYMPH % 26.7 % (20.0-51.0); MEAN CELL VOLUME 98 fl (80.0-100.0); MEAN CORPUSCULAR HEMOGLOBIN 33 pg (27-31); MEAN CORPUSCULAR HGB CONC 33 g/dl (33.0-37.0); MEAN PLATELET VOLUME 12.9 fl (7.4-10.4); MONO # 0.4 K/mm3 (0.1-0.6); PLATELET COUNT 167 K/mm3 (130-400); RED BLOOD COUNT 3.23 M/mm3 (4.10-5.30); REDCELL DISTRIBUTION WIDTH-CV 13.1 % (11.5-14.5)
[2023-10-09 08:09] LABS: CALCIUM 8.6 mg/dL (8.4-10.2); CREATININE, serum 0.87 mg/dL (0.57-1.11); POTASSIUM 4.4 mmol/L (3.5-4.5)
--- NOTE | 2023-10-09 08:30 | NUR ---
patient alert and oriented x3. patient felt nausea was given prn medication for it before patient's study.Patient is not getting her jevity 1.5 feeding this morning due to a gastric emptying study being done this morning. patient was taken to nuclear medicine to do her study and was given the study medication through the peg tube. patient will remain there until study is done.
[2023-10-09 08:41] LABS: MAGNESIUM 1.8 mg/dL (1.6-2.6); PHOSPHOROUS 4.3 mg/dL (2.3-4.7)
--- NOTE | 2023-10-09 12:00 | NUR ---
unable to do jevity feeding [facility] still has one last assessment to do.
--- NOTE | 2023-10-09 16:10 | NUR ---
Loading Dock Helper was notified that patient is ready for discharge today. JANET met with patient to review plan. JANET again offered SNF to patient and she declined. Patient requested assistance with coordinating getting her home as she came here by ambulance. JANET contacted Joseph with [facility] and faxed discharge orders. JANET also notified [employer], Director of Evaristo Guan of discharge. JANET then contacted [facility] and faxed updated nutrition order. Chip at [facility] advised they will deliver patient's formula to her home tomorrow. JANET coordinated with Dietitian to supply patient with enough formula to get patient through the evening and tomorrow. JANET contacted patient's daughter, Sonja who advised her , Saturnino would meet patient at her apartment shortly after five to assist her into the home. JANET scheduled an UBER to pick patient up at 1700. JANET provided this to RN and requested she have patient at ED Entrance at 1700 for mushroom picker.
--- NOTE | 2023-10-09 16:30 | NUR ---
PATIENT DISCAHRGE INSTRUCTIONS GIVEN. PATIENT DENIED HAVING QUESTIONS. PATIENT WILL BE ESCORTED OUT OF FLOOR ONCE HER RIDE IS HERE. PER SW PATIENT WILL BE PICKED UP BY UBER CARDIOLOGY COORDINATOR WHO WILL TAKE HER HOME AND THERE SON IN LAW WILL MEET HER AT THE APARTMENT. PATIENT IS DISCHARGE WITH SUPPLEMENTAL NUTRITION TO GET HER BY UNTIL TOMORROW WHEN SHE WILL GET THE OTHER FEEDS DELIVERED AT HER RESIDENCE.
--- NOTE | 2023-10-09 16:55 | NUR ---
PATIENT ESCORTED OUT BY UBER TO PATIENT RESIDENCE.
== END 2023-10-09 16:55 | disposition home or self-care (01) | DRG 640 ==
LOC: COL.ER 13:29 → MEDICAL 16:54
PROVIDERS: Nurse Practitioner; Physician Assistant; ADMIT Internal Medicine
DX: E86.0 Dehydration (principal); E43 Unspecified severe protein-calorie malnutrition; E16.2 Hypoglycemia, unspecified; I10 Essential (primary) hypertension; M79.7 Fibromyalgia; M32.9 Systemic lupus erythematosus, unspecified; M06.9 Rheumatoid arthritis, unspecified; M35.00 Sjogren syndrome, unspecified; E87.6 Hypokalemia; Z66 Do not resuscitate; E83.42 Hypomagnesemia; I95.9 Hypotension, unspecified; R19.7 Diarrhea, unspecified; E83.39 Other disorders of phosphorus metabolism; Z93.1 Gastrostomy status; Z90.710 Acquired absence of both cervix and uterus; Z90.49 Acquired absence of other specified parts of digestive tract; Z87.891 Personal history of nicotine dependence; Z91.148 Patient's other noncompliance with medication regimen for other reason; Z91.011 Allergy to milk products; Z68.23 Body mass index [BMI] 23.0-23.9, adult
CPT/HCPCS: A9541-JZ; J1650; J2405; J3475; J3480; J7030; J7040